=== PATIENT | male | born 1965 | race Caucasian/White ===

== ENCOUNTER 2019-03-12 09:29 | Emergency (ER) | payer BC ==
[2019-03-12] MEDS ORDERED: 0.9 % SODIUM CHLORIDE 1,000 ML BAG IV ONE (09:51)
[2019-03-12] MEDS ORDERED: IPRATROPIUM/ALBUTEROL (0.5MG/3MG) NEB INH ONE (09:51)
--- NOTE | 2019-03-12 09:57 | Emergency Department Record ---
History of Present Illness - General Chief Complaint: Cough Stated Complaint: COUGHING/SHORT OF BREATH/WEAK Time Seen by Provider: 03/12/19 09:42 Source: Patient Mode of Arrival: Ambulatory Limitations: No limitations - History of Present Illness Initial Comments: The patient is here due to a 4 day hx of cough, congestion, fever, body aches, ART, and HENRIQUEZ. The symptoms seem to have become worse today and now he is having lightheadedness. The patient denies any CP, back pain, or vomiting. He thought he had the flu but since he is feeling worse today he felt the need to be evaluated. MD Complaint: Cough, Fever, Nasal congestion, Rhinorrhea Onset/Timin -: Days(s) Consistency: Constant - Related Data Previous Rx's Medication Instructions Recorded Albuterol Sulfate [Proair Hfa] 2 puff IH QID PRN #1 inhaler 03/12/19 Azithromycin [Zithromax] 250 mg PO ASDIR #6 tab 03/12/19 Prednisone [Prednisone 20Mg] 40 mg PO DAILY #10 tab 03/12/19 Allergies Allergy/AdvReac Type Severity Reaction Status Date / Time No Known Drug Allergies Allergy Verified 03/12/19 09:39 Travel Screening - Travel/Exposure Within Last 30 Days Have you traveled within the last 30 days?: No Review of Systems Constitutional: Reports: Chills, Fever, Malaise Eyes: Denies: Eye discharge ENT: Reports: Congestion Respiratory: Reports: Cough, Dyspnea. Denies: Hemoptysis, Wheezes Cardiovascular: Denies: Arrhythmia, Chest pain Endocrine: Reports: Fatigue Gastrointestinal: Denies: Nausea Genitourinary: Denies: Dysuria Musculoskeletal: Denies: Arthralgia Skin: Denies: Bruising Past Medical History - SOCIAL HISTORY Smoking Status: Current every day smoker Alcohol Use: Occasional - RESPIRATORY Hx Respiratory Disorders: No - CARDIOVASCULAR Hx Cardio Disorders: No - NEURO Hx Neuro Disorders: No - GI Hx GI Disorders: No - Hx Genitourinary Disorders: No - ENDOCRINE Hx Endocrine Disorders: No - MUSCULOSKELETAL Hx Musculoskeletal Disorders: No - PSYCH Hx Psych Problems: No - HEMATOLOGY/ONCOLOGY Hx Hematology/Oncology Disorders: No Family Medical History Any Significant Family History?: No Physical Exam - General General Appearance: Alert, Oriented x3, Cooperative, No acute distress - Head Head exam: Atraumatic, Normocephalic, Normal inspection - Eye Eye exam: Normal appearance, PERRL, EOMI - ENT Throat exam: Tonsillar erythema (mild.). negative: Normal inspection, Tonsillar exudate, R peritonsillar mass, L peritonsillar mass - Neck Neck exam: Normal inspection, Full ROM. negative: Lymphadenopathy, Meningismus , Tenderness - Respiratory Respiratory exam: Decreased breath sounds (mildly in the lower lobes with faint wheezes L>R.). negative: Normal lung sounds bilaterally, Accessory muscle use, Rales, Respiratory distress, Rhonchi, Stridor - Cardiovascular Cardiovascular Exam: Regular rate, Normal rhythm, Normal heart sounds - GI/Abdominal GI/Abdominal exam: Soft, Normal bowel sounds. negative: Tenderness - Extremities Extremities exam: Normal inspection, Full ROM, Normal capillary refill. negative: Tenderness - Back Back exam: Reports: Normal inspection - Neurological Neurological exam: Alert, Normal gait. negative: Abnormal gait, Motor sensory deficit - Psychiatric Psychiatric exam: negative: Anxious Course Vital Signs 03/12/19 09:33 Temperature 97.5 F L Pulse Rate 95 H Respiratory 18 Rate Blood Pressure 171/96 Pulse Ox 95 - Reevaluation(s) Reevaluation #1: The patient is doing better at this time and is feeling better after the breathing treatments. His workup is appearing to demonstrate a viral process most likely. On exam now his lungs do have increased aeration with wheezing in the lower lobes. I did discuss the need for an inhaller at home and steroids with a ZPak to be safe. He is to see a family doctor next week for recheck and to return to the ER for any worsening symptoms. 03/12/19 11:43 Medical Decision Making - Data Complexity MDM Data: Labs Ordered and/or Reviewed, X-Ray Ordered and/or Reviewed - Lab Data Result diagrams: 03/12/19 09:45 03/12/19 09:45 - Radiology Data Radiology results: Report reviewed (CXR: Possible interstitial infiltrate L lung base most consistent with a viral process.) Disposition Disposition: Discharge Clinical Impression: Asthmatic bronchitis Qualifiers: Asthma severity: mild Asthma persistence: intermittent Asthma complication type : uncomplicated Qualified Code(s): J45.20 - Mild intermittent asthma, uncomplicated Disposition: Home, Self-Care Condition: (2) Stable Instructions: Bronchospasm (ED) Additional Instructions: Please drink plenty of fluids and take Tylenol for fever or body aches. Please use the inhaller, steroids and Zpak as directed. Return to the ER for any worsening symptoms. Prescriptions: Albuterol Sulfate [Proair Hfa] 2 puff IH QID PRN #1 inhaler PRN Reason: Cough And Difficulty Breathing Azithromycin [Zithromax] 250 mg PO ASDIR #6 tab Prednisone [Prednisone 20Mg] 40 mg PO DAILY #10 tab Forms: Patient Portal Access Time of Disposition: 11:47 Quality - Quality Measures Quality Measures: N/A - Blood Pressure Screening View Details: Yes Does Patient Have Any of the Following: No Blood Pressure Classification: Pre-Hypertensive BP Reading Systolic Measurement: 125 Diastolic Measurement: 75 Screening for High Blood Pressure: < Pre-Hypertensive BP, F/U Documented > [ [id number]] Pre-Hypertensive Follow-up Interventions: Referral to alternative/primary care provider.
[2019-03-12 10:00] LABS: BASO % 0.4 % (0-6); GRAN % 68.2 % (47-80); HEMATOCRIT 46.1 % (42.0-52.0); HEMOGLOBIN 15.9 gm/dl (14.0-18.0); LYMPH % 17.5 % (16-45); MEAN CELL VOLUME 82.9 fl (81-97); MEAN CORPUSCULAR HEMOGLOBIN 28.6 pg (27-33); MEAN CORPUSCULAR HGB CONC 34.5 g/dl (32-36); MEAN PLATELET VOLUME 10.4 fl (7.4-10.4); MONO % 13.9 % (0-9); PLATELET COUNT 263 K/uL (130-400); RED BLOOD COUNT 5.56 M/uL (4.40-5.70); RED CELL DISTRIBUTION WIDTH 13.9 % (11.5-14.5); WHITE BLOOD COUNT W/O DIFF 4.8 K/uL (4.2-12.2)
[2019-03-12 10:15] LABS: INFLUENZA A NEGATIVE (NEGATIVE); INFLUENZA B NEGATIVE (NEGATIVE)
[2019-03-12 10:30] LABS: BLOOD UREA NITROGEN 15 mg/dL (6-20); CREATININE 0.8 mg/dL (0.7-1.2); EST GLOMERULAR FILTRATION RATE > 60 mL/min
[2019-03-12 10:31] LABS: TOTAL PROTEIN 7.6 g/dL (6.6-8.7)
[2019-03-12 10:33] LABS: GLUCOSE,RANDOM 100 mg/dL (74-109)
[2019-03-12] MEDS ORDERED: METHYLPREDNISOLONE PF 125MG/VIAL IVP ONE (10:33)
[2019-03-12 10:35] LABS: ALB/GLOB RATIO 1.6 (1.1-1.8); ALBUMIN 4.7 g/dL (4.0-5.0); ALKALINE PHOSPHATASE 74 U/L (40-129); ALT/SGPT 28 U/L (<41); AST/SGOT 29 U/L (10.0-50.0)
[2019-03-12] MEDS ORDERED: ALBUTEROL SULFATE (0.083%) 2.5 MG/3 ML NEB INH ONE (10:59)
--- NOTE | 2019-03-14 22:39 | RADIOLOGY REPORT ---
EXAM: CHEST 2 VIEWS HISTORY: DIFFICULTY IN BREATHING AND COUGH FOR FIVE DAYS. TECHNIQUE: Upright PA and lateral views of the chest are obtained. COMPARISON: None. FINDINGS: The heart is not enlarged and the pulmonary vasculature is nondilated. There is a questionable subtle ill-defined micronodular pattern in the left lung base. This can be seen with inflammation/infection of small airways. The lungs and pleural spaces are otherwise clear. No acute osseous abnormality. IMPRESSION: SUBTLE PATCHY NODULAR OPACITIES QUESTIONED IN THE LEFT LUNG BASE CONSISTENT WITH INFILTRATE/INFLAMMATION OR INFECTION OF SMALL AIRWAYS VS. MILD ATELECTASIS. JOB NUMBER: [id number] [facility]
== END 2019-03-12 12:25 | disposition home or self-care (01) ==
LOC: ER 09:29
DX: J45.20 Mild intermittent asthma, uncomplicated (principal); R51 Headache; R53.1 Weakness; F17.210 Nicotine dependence, cigarettes, uncomplicated
CPT/HCPCS: 71046; 80053; 84145; 85025; 87400; 93005; 93010; 94640; 96374; 99284; J2930; J7030; J7613